=== PATIENT | male | born 1980 | race Caucasian/White ===

== ENCOUNTER 2017-04-02 11:11 | Emergency (ER) | payer OTHER | END 2017-04-02 12:00 | disposition home or self-care (01) | LOC: ER1 11:11 | DX: S90.111A Contusion of right great toe without damage to nail, initial encounter (principal); F11.20 Opioid dependence, uncomplicated; Z88.8 Allergy status to other drugs, medicaments and biological substances; Z79.899 Other long term (current) drug therapy; W22.8XXA Striking against or struck by other objects, initial encounter | CPT/HCPCS: 73630; 99283 ==